=== PATIENT | female | born 1960 | race Caucasian/White ===

== ENCOUNTER 2017-05-11 01:30 | Observation (INO) ==
[2017-05-11 02:29] LABS: Basophils # 0.1 K/mcL (0.0-0.2); Basophils % 0.7 %; Eosinophils # 0.5 K/mcL (0.0-0.6); Eosinophils % 4.1 %; Hematocrit 43.4 % (35.3-44.9); Hemoglobin 14.3 g/dL (11.5-15.4); Immature Granulocytes % 0.3 % (0-4); Immature Platelets 6.6 % (1.1-6.1); Lymphocytes # 1.6 K/mcL (0.6-4.6); Lymphocytes % 13.1 %; Mean Corpuscular HGB Conc 32.9 g/dL (31.6-35.5); Mean Corpuscular Hemoglobin 29.4 pg (28.0-33.3); Mean Corpuscular Volume 89.1 fL (83.0-100.0); Mean Platelet Volume 10.8 fL (9.4-12.4); Monocytes # 0.7 K/mcL (0.0-1.3); Monocytes % 5.8 %; Neutrophils # 9.2 K/mcL (1.6-8.9); Platelet Count 308 K/mcL (140-400); Red Blood Count 4.87 M/mcL (3.82-4.97); Red Cell Distribution Width 13.8 % (11.5-14.5)
[2017-05-11 02:36] LABS: Activated Partial Thrombo Time 31.3 Seconds (26.0-36.0)
[2017-05-11 02:43] LABS: Calcium 9.6 mg/dL (8.6-10.8); Potassium 3.6 mEq/L (3.5-4.5)
[2017-05-11] MEDS ORDERED: Ondansetron 4 MG/2 ML VIAL IVP ONE (04:58)
[2017-05-11] MEDS ORDERED: 0.9 % Sodium Chloride 1,000 ML IVC ONE (04:58)
[2017-05-11] MEDS ORDERED: *HR* Morphine 2 MG/ML SYRINGE IVP ONE (04:58)
[2017-05-11 05:08] LABS: Bilirubin,Urine Small (Negative); Blood,Urine Negative (Negative); Clarity,Urine Cloudy (Clear); Color,Urine Yellow (Yellow); Glucose,Urine (UA) Normal (Normal); Ketones,Urine Trace mg/dL (Negative); Leukocyte Esterase,Urine Moderate (Negative); Nitrite,Urine Positive (Negative); PH,Urine 5.5 pH Units (5.0-8.0); Protein,Urine 30 mg/dL (Neg-Trace); Specific Gravity,Urine 1.022 (1.010-1.025); Urobilinogen,Urine Normal (Normal)
--- NOTE | 2017-05-11 05:08 | Emergency Department Note ---
Disposition Clinical Impression: Weakness Abdominal pain Qualifiers: Abdominal location: periumbilical Qualified Code(s): R10.33 - Periumbilical pain GI bleed Qualifiers: GI bleed type/associated pathology: unspecified gastrointestinal hemorrhage type Qualified Code(s): K92.2 - Gastrointestinal hemorrhage, unspecified Disposition: Still a Patient Condition: Fair Referrals: Paolo Ortiz MD [Primary Care Provider] - Forms: Work/School Release, ED Satisfaction Letter Time of Disposition: 06:19 Abdominal Pain HPI - General Chief Complaint: ED Abdominal Pain Stated Complaint: black diarrhea, weakness Time Seen by Provider: 05/11/17 04:42 Source: patient Mode of arrival: ambulatory Limitations: no limitations Nursing Notes Reviewed: Yes Vital Signs Reviewed: Yes - History of Present Illness HPI Narrative: Alert and oriented nontoxic-appearing 56-year-old female presents for multiple complaints. The patient complains of diarrhea that started on April 29 and has been constant. She states that earlier yesterday evening, she had an episode of dark tarry stools which has persisted since. She complains of periumbilical abdominal pain with nausea however denies any vomiting. She denies any fevers or chills. She does complain of a cough that is nonproductive. She also complains of substernal chest pain that she states "feels like anxiety". She states that this is more of a "pressure than a pain". She denies any urinary symptoms. She denies any shortness of breath or pain with inspiration. She does complain of generalized weakness and "muscle cramps all over". She denies any known sick contacts or recent foreign travel. She denies any recent antibiotic use. She states that she has a history of decreased kidney function , for which she is followed by Dr. Nguyen. Pt Subjective Complaint: abdominal pain Onset (ago): week(s) Consistency: intermittent Location: periumbilical Pain Severity: moderate Pain Scale: 7 Quality: cramping Radiation: none Migration to: no migration Improves with: nothing Worsens with: nothing Associated symptoms: Reports: nausea, diarrhea, melena, other (Cough, chest pain ). Denies: vomiting, fever, chills, dysuria, hematemesis, hematochezia, hematuria Treatments prior to arrival: none - Related Data Home Medications Medication Instructions Recorded Confirmed Alprazolam [Xanax] 0.5 mg PO TID PRN 05/31/15 11/04/15 Cholecalciferol (Vitamin D3) 50,000 unit PO QWEEK 05/31/15 11/04/15 [Vitamin D3] Gabapentin [Neurontin] 300 mg PO TID 05/31/15 11/04/15 Omeprazole [PriLOSEC] 40 mg PO BID 05/31/15 11/04/15 Quetiapine Fumarate [Seroquel] 25 - 50 mg PO HS PRN 05/31/15 11/04/15 Rosuvastatin Calcium [Crestor] 10 mg PO DAILY 05/31/15 11/04/15 Aspirin Enteric Coated [Aspirin EC] 325 mg PO HS 10/24/15 11/04/15 Ergocalciferol (VITAMIN D2) 50,000 unit PO [facility] 10/24/15 11/04/15 [Vitamin D2 (50,000 UNIT)] Previous Rx's Medication Instructions Recorded Amlodipine [Norvasc] 5 mg PO DAILY #30 tablet 07/24/15 Allergies Allergy/AdvReac Type Severity Reaction Status Date / Time Sulfa (Sulfonamide Allergy Hives Verified 05/11/17 01:32 Antibiotics) All systems ED: reviewed and negative except as stated. Constitutional: Denies: fever, chills, weakness, weight change Eyes: Denies: eye pain, eye discharge, vision change ENT ED: Denies: ear pain, throat pain, dental pain, hearing loss, epistaxis, congestion, dysphagia Cardiovascular: Reports: as per HPI, chest pain. Denies: palpitations, dyspnea on exertion, edema, syncope Respiratory: Reports: as per HPI, cough. Denies: dyspnea, wheezes, hemoptysis, stridor Gastrointestinal: Reports: as per HPI, abdominal pain, nausea, diarrhea, melena. Denies: vomiting, constipation, hematemesis, hematochezia Genitourinary: Denies: dysuria, frequency, hematuria, discharge Musculoskeletal: Denies: back pain, neck pain, arthralgia, myalgia Integumentary: Denies: rash, abrasion, lesions Neurological: Denies: headache, weakness, numbness, paresthesias, confusion, abnormal gait, vertigo Psychiatric: Denies: anxiety, depression, suicidal thoughts, homicidal thoughts , auditory hallucinations, visual hallucinations Endocrine: Denies: fatigue Hematological/Lymphatic: Denies: easy bleeding, easy bruising Allergic/Immunologic: Denies: facial swelling, urticaria Abdominal Pain PMH - Past Medical History Medical history: Reports: CHF, DVT, diabetes, GERD, hyperlipidemia, hypertension , other Female Surgical History: Reports: appendectomy, cholecystectomy [employer] history: Reports: no [employer] history Psychiatric history: Reports: anxiety, depression - Social History Smoking status: Current every day smoker Alcohol use: Reports: rarely Drug use: Reports: marijuana Physical Exam - General Limitations: no limitations General appearance: alert, in no apparent distress - Head Head exam: atraumatic, normocephalic, normal inspection - Eye Eye exam: Present: normal appearance, PERRL, EOMI. Absent: nystagmus - ENT ENT exam: mucous membranes moist - Neck Neck exam: Present: normal inspection, full ROM, trachea midline - Chest Chest inspection: Present: normal inspection, symmetric chest wall rise - Respiratory Respiratory exam: Present: normal lung sounds bilaterally. Absent: respiratory distress, wheezes, stridor, accessory muscle use, prolonged expiratory phase - Cardiovascular Cardiovascular exam: Present: regular rate, normal rhythm, normal heart sounds - Abdominal Exam Abdominal exam: Present: soft, tenderness, normal bowel sounds. Absent: distention, guarding, rebound, rigidity, organomegaly, tenderness at McBurney's Point, mass Abdominal tenderness: Present: epigastrium, moderate - Extremities Exam Extremities exam: Present: normal inspection, full ROM. Absent: tenderness, pedal edema - Neurological Exam Neurological exam: Present: alert, oriented X3 - Psychiatric Psychiatric exam: Present: normal affect, normal mood - Skin Skin exam: Present: warm, dry, intact, normal color Course Course Narrative: I have discussed this patient's case with Dr. Kirkpatrick. Dr. Kirkpatrick has had a [id number] evaluation with the patient and agrees with the plan. Vital Signs Temperature 98.0 F 05/11/17 01:33 Pulse Rate 81 05/11/17 01:33 Respiratory Rate 16 05/11/17 01:33 Blood Pressure 128/83 05/11/17 01:33 O2 Sat by Pulse Oximetry 97 05/11/17 01:33 Temperature 98.0 F 05/11/17 01:33 Pulse Rate 67 05/11/17 07:31 Respiratory Rate 20 07/15/17 07:31 Blood Pressure 127/71 05/11/17 07:31 O2 Sat by Pulse Oximetry 94 05/11/17 07:32 Oxygen Delivery Oxygen Delivery Room Air Abdominal Pain - Medical Records Medical records reviewed: Yes I reviewed the patient's medical records. - Lab Data Result diagrams: 05/11/17 02:19 05/11/17 02:19 Lab Results 05/11/17 05/11/17 05/11/17 Range/Units 02:19 02:19 02:19 WBC 12.0 H (4.3-11.1) K/mcL RBC 4.87 (3.82-4.97) M/mcL Hgb 14.3 (11.5-15.4) g/dL Hct 43.4 (35.3-44.9) % MCV 89.1 (83.0-100.0) fL MCH 29.4 (28.0-33.3) pg MCHC 32.9 (31.6-35.5) g/dL RDW 13.8 (11.5-14.5) % Plt Count 308 (140-400) K/mcL MPV 10.8 (9.4-12.4) fL Immature Gran % 0.3 (0-4) % Seg Neutrophils % 76.0 % Lymphocytes % 13.1 % Monocytes % 5.8 % Eosinophils % 4.1 % Basophils % 0.7 % Neutrophils # 9.2 H (1.6-8.9) K/mcL Lymphocytes # 1.6 (0.6-4.6) K/mcL Monocytes # 0.7 (0.0-1.3) K/mcL Eosinophils # 0.5 (0.0-0.6) K/mcL Basophils # 0.1 (0.0-0.2) K/mcL Immature Plt Fraction 6.6 H (1.1-6.1) % PT 11.0 (9.4-12.1) Seconds INR 1.0 APTT 31.3 (26.0-36.0) Seconds Sodium 140 (136-145) mEq/L Potassium 3.6 (3.5-4.5) mEq/L Chloride 111 H (98-109) mEq/L Carbon Dioxide 20 (19-29) mEq/L BUN 22 H (7-20) mg/dL Creatinine 1.82 H (0.57-1.11) mg/dL Est GFR ( Amer) 35 L (> 60) Est GFR (Non-Af Amer) 29 L (> 60) BUN/Creatinine Ratio 12 (6-26) Glucose 81 (70-99) mg/dL Calculated Osmolality 292 (280-300) Calcium 9.6 (8.6-10.8) mg/dL Phosphorus (2.3-4.7) mg/dL Magnesium (1.6-2.6) mg/dL Total Bilirubin (0.2-1.2) mg/dL Direct Bilirubin (0.0-0.5) mg/dL Indirect Bilirubin (0.0-1.2) mg/dL AST (5-34) Units/L ALT (0-55) Units/L Alkaline Phosphatase (38-126) Units/L Troponin I (0-0.03) ng/mL Serum Total Protein (6.0-8.3) g/dL Albumin (3.5-5.0) g/dL Globulin (2.4-3.5) g/dL Albumin/Globulin Ratio (1.1-2.2) Lipase (8-78) Units/L Urine Color (Yellow) Urine Clarity (Clear) Urine pH (5.0-8.0) pH Units Ur Specific [place] (1.010-1.025) Urine Protein (Neg-Trace) mg/dL Urine Glucose (UA) (Normal) mg/dL Urine Ketones (Negative) mg/dL Urine Blood (Negative) Urine Nitrite (Negative) Urine Bilirubin (Negative) Urine Urobilinogen (Normal) mg/dL Ur Leukocyte Esterase (Negative) Urine Microscopic RBC (0-3) per hpf Urine Microscopic WBC (0-3) per hpf Ur Squamous Epith Cells (None-Few) per lpf Urine Bacteria (None-Few) per hpf Ur Culture Indicated? (NO) Blood Type Antibody Screen 05/11/17 05/11/17 05/11/17 Range/Units 02:19 04:47 05:18 WBC (4.3-11.1) K/mcL RBC (3.82-4.97) M/mcL Hgb (11.5-15.4) g/dL Hct (35.3-44.9) % MCV (83.0-100.0) fL MCH (28.0-33.3) pg MCHC (31.6-35.5) g/dL RDW (11.5-14.5) % Plt Count (140-400) K/mcL MPV (9.4-12.4) fL Immature Gran % (0-4) % Seg Neutrophils % % Lymphocytes % % Monocytes % % Eosinophils % % Basophils % % Neutrophils # (1.6-8.9) K/mcL Lymphocytes # (0.6-4.6) K/mcL Monocytes # (0.0-1.3) K/mcL Eosinophils # (0.0-0.6) K/mcL Basophils # (0.0-0.2) K/mcL Immature Plt Fraction (1.1-6.1) % PT (9.4-12.1) Seconds INR APTT (26.0-36.0) Seconds Sodium (136-145) mEq/L Potassium (3.5-4.5) mEq/L Chloride (98-109) mEq/L Carbon Dioxide (19-29) mEq/L BUN (7-20) mg/dL Creatinine (0.57-1.11) mg/dL Est GFR ( Amer) (> 60) Est GFR (Non-Af Amer) (> 60) BUN/Creatinine Ratio (6-26) Glucose (70-99) mg/dL Calculated Osmolality (280-300) Calcium (8.6-10.8) mg/dL Phosphorus 3.4 (2.3-4.7) mg/dL Magnesium 1.7 (1.6-2.6) mg/dL Total Bilirubin 0.3 (0.2-1.2) mg/dL Direct Bilirubin 0.2 (0.0-0.5) mg/dL Indirect Bilirubin 0.1 (0.0-1.2) mg/dL AST 14 (5-34) Units/L ALT 12 (0-55) Units/L Alkaline Phosphatase 108 (38-126) Units/L Troponin I (0-0.03) ng/mL Serum Total Protein 7.1 (6.0-8.3) g/dL Albumin 3.5 (3.5-5.0) g/dL Globulin 3.6 H (2.4-3.5) g/dL Albumin/Globulin Ratio 1.0 L (1.1-2.2) Lipase 56 (8-78) Units/L Urine Color Yellow (Yellow) Urine Clarity Cloudy A (Clear) Urine pH 5.5 (5.0-8.0) pH Units Ur Specific [place] 1.022 (1.010-1.025) Urine Protein 30 H (Neg-Trace) mg/dL Urine Glucose (UA) Normal (Normal) mg/dL Urine Ketones Trace H (Negative) mg/dL Urine Blood Negative (Negative) Urine Nitrite Positive A (Negative) Urine Bilirubin Small H (Negative) Urine Urobilinogen Normal (Normal) mg/dL Ur Leukocyte Esterase Moderate H (Negative) Urine Microscopic RBC 3-5 H (0-3) per hpf Urine Microscopic WBC 5-15 H (0-3) per hpf Ur Squamous Epith Cells Many H (None-Few) per lpf Urine Bacteria Many H (None-Few) per hpf Ur Culture Indicated? YES A (NO) Blood Type O POSITIVE Antibody Screen NEGATIVE 05/11/17 Range/Units 05:18 WBC (4.3-11.1) K/mcL RBC (3.82-4.97) M/mcL Hgb (11.5-15.4) g/dL Hct (35.3-44.9) % MCV (83.0-100.0) fL MCH (28.0-33.3) pg MCHC (31.6-35.5) g/dL RDW (11.5-14.5) % Plt Count (140-400) K/mcL MPV (9.4-12.4) fL Immature Gran % (0-4) % Seg Neutrophils % % Lymphocytes % % Monocytes % % Eosinophils % % Basophils % % Neutrophils # (1.6-8.9) K/mcL Lymphocytes # (0.6-4.6) K/mcL Monocytes # (0.0-1.3) K/mcL Eosinophils # (0.0-0.6) K/mcL Basophils # (0.0-0.2) K/mcL Immature Plt Fraction (1.1-6.1) % PT (9.4-12.1) Seconds INR APTT (26.0-36.0) Seconds Sodium (136-145) mEq/L Potassium (3.5-4.5) mEq/L Chloride (98-109) mEq/L Carbon Dioxide (19-29) mEq/L BUN (7-20) mg/dL Creatinine (0.57-1.11) mg/dL Est GFR ( Amer) (> 60) Est GFR (Non-Af Amer) (> 60) BUN/Creatinine Ratio (6-26) Glucose (70-99) mg/dL Calculated Osmolality (280-300) Calcium (8.6-10.8) mg/dL Phosphorus (2.3-4.7) mg/dL Magnesium (1.6-2.6) mg/dL Total Bilirubin (0.2-1.2) mg/dL Direct Bilirubin (0.0-0.5) mg/dL Indirect Bilirubin (0.0-1.2) mg/dL AST (5-34) Units/L ALT (0-55) Units/L Alkaline Phosphatase (38-126) Units/L Troponin I 0.02 (0-0.03) ng/mL Serum Total Protein (6.0-8.3) g/dL Albumin (3.5-5.0) g/dL Globulin (2.4-3.5) g/dL Albumin/Globulin Ratio (1.1-2.2) Lipase (8-78) Units/L Urine Color (Yellow) Urine Clarity (Clear) Urine pH (5.0-8.0) pH Units Ur Specific [place] (1.010-1.025) Urine Protein (Neg-Trace) mg/dL Urine Glucose (UA) (Normal) mg/dL Urine Ketones (Negative) mg/dL Urine Blood (Negative) Urine Nitrite (Negative) Urine Bilirubin (Negative) Urine Urobilinogen (Normal) mg/dL Ur Leukocyte Esterase (Negative) Urine Microscopic RBC (0-3) per hpf Urine Microscopic WBC (0-3) per hpf Ur Squamous Epith Cells (None-Few) per lpf Urine Bacteria (None-Few) per hpf Ur Culture Indicated? (NO) Blood Type Antibody Screen - EKG Data EKG attestation: Yes I reviewed and interpreted this EKG. EKG shows normal: sinus rhythm, axis, intervals, QRS complexes, ST-T waves Rate: normal Rhythm: NSR [place]/QRS: normal When compared to previous EKG there are: no significant changes Interpretation: no acute changes, unchanged when compared to prior tracing (date ) (10/20/15) Critical Care Time Critical Care Time: Yes Total Critical Care Time: 45 Attestation: Critical care performed: Time is exclusive of separately billable procedures. Time includes: direct patient care, patient reassessment, coordination of patient care, interpretation of data (laboratory data, radiology data, and respiratory data), review of patient's medical records, medical consultation and documentation of patient care. Procedures included in critical care time: Procedures excluded from critical care time: S.B.A.R. - S.B.A.R. Transition of Care: Care of this patient has been transferred to Philly Berry PA-C due to mid- level shift change. Situation: Demographics, MOA Background: Presenting Complaint, Relevant PMH, Meds, & Allergies Assessment: Vital Signs, Course and respsone to treatment, Exam Concerns, Patient/Family Expectation, Pertinant Lab Results, Outstanding Labs Recommendation: Barrier(s) to disposition, Recommendation based on pending studies, treatments, or consults S.B.A.R. Report Given to: Philly Berry PA-C SFloydBFloydALorna Repor Time: 06:18 Attestation Statement - Attestation Attestation: Adithya, Ivan Kirkpatrick DO have provided [id number] time during the care of this patient. Detailed review the presentation, symptoms, medical history were discussed and reviewed with the mid-level provider Mikey Farris PA-C/COMMUNICATIONS DIRECTOR. Medical intervention labs and imaging studies were reviewed in detail. See full documentation of physical exam and course of care in the mid-level provider's note. I agree with the determined course of care, medical interventio,n and disposition put forth by the mid-level provider. See below documentation for changes or alterations in documentation. 56-year-old female presents emergency room with multiple complaints on presentation. Symptoms mainly on arrival here today's abdominal discomfort and pain. She also describes watery stool with dark color. Patient has a history of peptic ulcer disease with bleed in the past. Patient had evaluation by the nurse practitioner Mikey Farris. Patient had a Hemoccult-positive stool this time the diarrhea. CT of the abdomen shows ventral wall hernia with no other complication. Labs reviewed and otherwise stable except for increase in her kidney function as well as urinary tract infection. Because of the multiple presenting issues as well as lab abnormalities patient will be admitted for IV antibiotics and hydration and pain control. Otherwise patient is negative for any other concerning issues at this time. Disposition pending the admission process being completely by the daytime physician's judicial assistant Philly Berry. Detailed course of care and medical intervention evaluation were completed and documented prior. Critical care time provided to the patient secondary to GI bleed, diarrhea, abdominal pain, urinary tract infection with acute kidney injury
[2017-05-11 05:14] LABS: Squamous Epithelial Cell,Urine Many per lpf (None-Few)
[2017-05-11 05:15] LABS: Bacteria,Urine Many per hpf (None-Few)
[2017-05-11 06:13] LABS: Albumin 3.5 g/dL (3.5-5.0); Bilirubin,Direct 0.2 mg/dL (0.0-0.5); Bilirubin,Indirect 0.1 mg/dL (0.0-1.2); Bilirubin,Total 0.3 mg/dL (0.2-1.2); Globulin 3.6 g/dL (2.4-3.5); Magnesium 1.7 mg/dL (1.6-2.6); Phosphorous 3.4 mg/dL (2.3-4.7); Total Protein 7.1 g/dL (6.0-8.3)
--- NOTE | 2017-05-11 07:55 | Emergency Department Note ---
Disposition Clinical Impression: Weakness, Acute on chronic renal insufficiency Abdominal pain Qualifiers: Abdominal location: periumbilical Qualified Code(s): R10.33 - Periumbilical pain GI bleed Qualifiers: GI bleed type/associated pathology: unspecified gastrointestinal hemorrhage type Qualified Code(s): K92.2 - Gastrointestinal hemorrhage, unspecified UTI (urinary tract infection) Qualifiers: Urinary tract infection type: site unspecified Hematuria presence: without hematuria Qualified Code(s): N39.0 - Urinary tract infection, site not specified Disposition: Admitted As Inpatient Condition: Fair Referrals: Paolo Ortiz MD [Primary Care Provider] - Forms: ED Satisfaction Letter, Work/School Release Abdominal Pain HPI - General Chief Complaint: ED Abdominal Pain Stated Complaint: black diarrhea, weakness Time Seen by Provider: 05/11/17 04:42 Source: patient Mode of arrival: ambulatory Nursing Notes Reviewed: Yes Vital Signs Reviewed: Yes - History of Present Illness Pt Subjective Complaint: abdominal pain Location: periumbilical Pain Severity: moderate Pain Scale: 7 Quality: cramping Migration to: no migration Improves with: nothing Worsens with: nothing Associated symptoms: Reports: nausea, diarrhea, melena, other (Cough, chest pain ). Denies: vomiting, fever, chills, dysuria, hematemesis, hematochezia, hematuria - Related Data Home Medications Medication Instructions Recorded Confirmed Alprazolam [Xanax] 0.5 mg PO TID PRN 05/31/15 11/04/15 Cholecalciferol (Vitamin D3) 50,000 unit PO QWEEK 05/31/15 11/04/15 [Vitamin D3] Gabapentin [Neurontin] 300 mg PO TID 05/31/15 11/04/15 Omeprazole [PriLOSEC] 40 mg PO BID 05/31/15 11/04/15 Quetiapine Fumarate [Seroquel] 25 - 50 mg PO HS PRN 05/31/15 11/04/15 Rosuvastatin Calcium [Crestor] 10 mg PO DAILY 05/31/15 11/04/15 Aspirin Enteric Coated [Aspirin EC] 325 mg PO HS 10/24/15 11/04/15 Ergocalciferol (VITAMIN D2) 50,000 unit PO [facility] 10/24/15 11/04/15 [Vitamin D2 (50,000 UNIT)] Previous Rx's Medication Instructions Recorded Amlodipine [Norvasc] 5 mg PO DAILY #30 tablet 07/24/15 Allergies Allergy/AdvReac Type Severity Reaction Status Date / Time Sulfa (Sulfonamide Allergy Hives Verified 05/11/17 01:32 Antibiotics) Constitutional: Denies: fever, chills, weakness, weight change Eyes: Denies: eye pain, eye discharge, vision change ENT ED: Denies: ear pain, throat pain, dental pain, hearing loss, epistaxis, congestion, dysphagia Cardiovascular: Reports: as per HPI, chest pain. Denies: palpitations, dyspnea on exertion, edema, syncope Respiratory: Reports: as per HPI, cough. Denies: dyspnea, wheezes, hemoptysis, stridor Gastrointestinal: Reports: as per HPI, abdominal pain, nausea, diarrhea, melena. Denies: vomiting, constipation, hematemesis, hematochezia Genitourinary: Denies: dysuria, frequency, hematuria, discharge Musculoskeletal: Denies: back pain, neck pain, arthralgia, myalgia Integumentary: Denies: rash, abrasion, lesions Neurological: Denies: headache, weakness, numbness, paresthesias, confusion, abnormal gait, vertigo Psychiatric: Denies: anxiety, depression, suicidal thoughts, homicidal thoughts , auditory hallucinations, visual hallucinations Endocrine: Denies: fatigue Hematological/Lymphatic: Denies: easy bleeding, easy bruising Allergic/Immunologic: Denies: facial swelling, urticaria Abdominal Pain PMH - Past Medical History Medical history: Reports: CHF, DVT, diabetes, GERD, hyperlipidemia, hypertension , other Female Surgical History: Reports: appendectomy, cholecystectomy NEUROLOGY TECHNICIAN history: Reports: no NEUROLOGY TECHNICIAN history Psychiatric history: Reports: anxiety, depression - Social History Smoking status: Current every day smoker Alcohol use: Reports: rarely Drug use: Reports: marijuana Physical Exam - General Limitations: no limitations General appearance: alert, in no apparent distress Course Course Narrative: Assumed care of this patient from [facility] at 6 AM. Patient was waiting the results of a CAT scan. The CT has been read as a small fat-containing umbilical hernia, otherwise normal. The patient has a UTI, has worsening renal function compared to previous. She has chronic kidney disease. She has a history of peptic ulcer disease and has had no GI bleed in the past. She has had diarrhea since about April 29, but did not start having melena until yesterday. Given her history and comorbidities, I feel that she will require admission for further evaluation and observation. This case has already been stopped with the attending physician, Dr. Kirkpatrick. We discussed the plan to admit. He is in agreement. He has already attested to this patient and this documentation can be found on the chart done by Mikey Farris CNP Vital Signs Temperature 98.0 F 05/11/17 01:33 Pulse Rate 81 05/11/17 01:33 Respiratory Rate 16 05/11/17 01:33 Blood Pressure 128/83 05/11/17 01:33 O2 Sat by Pulse Oximetry 97 05/11/17 01:33 Temperature 98.0 F 05/11/17 01:33 Pulse Rate 67 05/11/17 07:31 Respiratory Rate 20 05/11/17 07:31 Blood Pressure 127/71 05/11/17 07:31 O2 Sat by Pulse Oximetry 94 05/11/17 07:32 Oxygen Delivery Oxygen Delivery Room Air Abdominal Pain - Lab Data Result diagrams: 05/11/17 02:19 05/11/17 02:19 Lab Results 05/11/17 05/11/17 05/11/17 Range/Units 02:19 02:19 02:19 WBC 12.0 H (4.3-11.1) K/mcL RBC 4.87 (3.82-4.97) M/mcL Hgb 14.3 (11.5-15.4) g/dL Hct 43.4 (35.3-44.9) % MCV 89.1 (83.0-100.0) fL MCH 29.4 (28.0-33.3) pg MCHC 32.9 (31.6-35.5) g/dL RDW 13.8 (11.5-14.5) % Plt Count 308 (140-400) K/mcL MPV 10.8 (9.4-12.4) fL Immature Gran % 0.3 (0-4) % Seg Neutrophils % 76.0 % Lymphocytes % 13.1 % Monocytes % 5.8 % Eosinophils % 4.1 % Basophils % 0.7 % Neutrophils # 9.2 H (1.6-8.9) K/mcL Lymphocytes # 1.6 (0.6-4.6) K/mcL Monocytes # 0.7 (0.0-1.3) K/mcL Eosinophils # 0.5 (0.0-0.6) K/mcL Basophils # 0.1 (0.0-0.2) K/mcL Immature Plt Fraction 6.6 H (1.1-6.1) % PT 11.0 (9.4-12.1) Seconds INR 1.0 APTT 31.3 (26.0-36.0) Seconds Sodium 140 (136-145) mEq/L Potassium 3.6 (3.5-4.5) mEq/L Chloride 111 H (98-109) mEq/L Carbon Dioxide 20 (19-29) mEq/L BUN 22 H (7-20) mg/dL Creatinine 1.82 H (0.57-1.11) mg/dL Est GFR ( Amer) 35 L (> 60) Est GFR (Non-Af Amer) 29 L (> 60) BUN/Creatinine Ratio 12 (6-26) Glucose 81 (70-99) mg/dL Calculated Osmolality 292 (280-300) Calcium 9.6 (8.6-10.8) mg/dL Phosphorus (2.3-4.7) mg/dL Magnesium (1.6-2.6) mg/dL Total Bilirubin (0.2-1.2) mg/dL Direct Bilirubin (0.0-0.5) mg/dL Indirect Bilirubin (0.0-1.2) mg/dL AST (5-34) Units/L ALT (0-55) Units/L Alkaline Phosphatase (38-126) Units/L Troponin I (0-0.03) ng/mL Serum Total Protein (6.0-8.3) g/dL Albumin (3.5-5.0) g/dL Globulin (2.4-3.5) g/dL Albumin/Globulin Ratio (1.1-2.2) Lipase (8-78) Units/L Urine Color (Yellow) Urine Clarity (Clear) Urine pH (5.0-8.0) pH Units Ur Specific [place] (1.010-1.025) Urine Protein (Neg-Trace) mg/dL Urine Glucose (UA) (Normal) mg/dL Urine Ketones (Negative) mg/dL Urine Blood (Negative) Urine Nitrite (Negative) Urine Bilirubin (Negative) Urine Urobilinogen (Normal) mg/dL Ur Leukocyte Esterase (Negative) Urine Microscopic RBC (0-3) per hpf Urine Microscopic WBC (0-3) per hpf Ur Squamous Epith Cells (None-Few) per lpf Urine Bacteria (None-Few) per hpf Ur Culture Indicated? (NO) Blood Type Antibody Screen 05/11/17 05/11/17 05/11/17 Range/Units 02:19 04:47 05:18 WBC (4.3-11.1) K/mcL RBC (3.82-4.97) M/mcL Hgb (11.5-15.4) g/dL Hct (35.3-44.9) % MCV (83.0-100.0) fL MCH (28.0-33.3) pg MCHC (31.6-35.5) g/dL RDW (11.5-14.5) % Plt Count (140-400) K/mcL MPV (9.4-12.4) fL Immature Gran % (0-4) % Seg Neutrophils % % Lymphocytes % % Monocytes % % Eosinophils % % Basophils % % Neutrophils # (1.6-8.9) K/mcL Lymphocytes # (0.6-4.6) K/mcL Monocytes # (0.0-1.3) K/mcL Eosinophils # (0.0-0.6) K/mcL Basophils # (0.0-0.2) K/mcL Immature Plt Fraction (1.1-6.1) % PT (9.4-12.1) Seconds INR APTT (26.0-36.0) Seconds Sodium (136-145) mEq/L Potassium (3.5-4.5) mEq/L Chloride (98-109) mEq/L Carbon Dioxide (19-29) mEq/L BUN (7-20) mg/dL Creatinine (0.57-1.11) mg/dL Est GFR ( Amer) (> 60) Est GFR (Non-Af Amer) (> 60) BUN/Creatinine Ratio (6-26) Glucose (70-99) mg/dL Calculated Osmolality (280-300) Calcium (8.6-10.8) mg/dL Phosphorus 3.4 (2.3-4.7) mg/dL Magnesium 1.7 (1.6-2.6) mg/dL Total Bilirubin 0.3 (0.2-1.2) mg/dL Direct Bilirubin 0.2 (0.0-0.5) mg/dL Indirect Bilirubin 0.1 (0.0-1.2) mg/dL AST 14 (5-34) Units/L ALT 12 (0-55) Units/L Alkaline Phosphatase 108 (38-126) Units/L Troponin I (0-0.03) ng/mL Serum Total Protein 7.1 (6.0-8.3) g/dL Albumin 3.5 (3.5-5.0) g/dL Globulin 3.6 H (2.4-3.5) g/dL Albumin/Globulin Ratio 1.0 L (1.1-2.2) Lipase 56 (8-78) Units/L Urine Color Yellow (Yellow) Urine Clarity Cloudy A (Clear) Urine pH 5.5 (5.0-8.0) pH Units Ur Specific [place] 1.022 (1.010-1.025) Urine Protein 30 H (Neg-Trace) mg/dL Urine Glucose (UA) Normal (Normal) mg/dL Urine Ketones Trace H (Negative) mg/dL Urine Blood Negative (Negative) Urine Nitrite Positive A (Negative) Urine Bilirubin Small H (Negative) Urine Urobilinogen Normal (Normal) mg/dL Ur Leukocyte Esterase Moderate H (Negative) Urine Microscopic RBC 3-5 H (0-3) per hpf Urine Microscopic WBC 5-15 H (0-3) per hpf Ur Squamous Epith Cells Many H (None-Few) per lpf Urine Bacteria Many H (None-Few) per hpf Ur Culture Indicated? YES A (NO) Blood Type O POSITIVE Antibody Screen NEGATIVE 05/11/17 Range/Units 05:18 WBC (4.3-11.1) K/mcL RBC (3.82-4.97) M/mcL Hgb (11.5-15.4) g/dL Hct (35.3-44.9) % MCV (83.0-100.0) fL MCH (28.0-33.3) pg MCHC (31.6-35.5) g/dL RDW (11.5-14.5) % Plt Count (140-400) K/mcL MPV (9.4-12.4) fL Immature Gran % (0-4) % Seg Neutrophils % % Lymphocytes % % Monocytes % % Eosinophils % % Basophils % % Neutrophils # (1.6-8.9) K/mcL Lymphocytes # (0.6-4.6) K/mcL Monocytes # (0.0-1.3) K/mcL Eosinophils # (0.0-0.6) K/mcL Basophils # (0.0-0.2) K/mcL Immature Plt Fraction (1.1-6.1) % PT (9.4-12.1) Seconds INR APTT (26.0-36.0) Seconds Sodium (136-145) mEq/L Potassium (3.5-4.5) mEq/L Chloride (98-109) mEq/L Carbon Dioxide (19-29) mEq/L BUN (7-20) mg/dL Creatinine (0.57-1.11) mg/dL Est GFR ( Amer) (> 60) Est GFR (Non-Af Amer) (> 60) BUN/Creatinine Ratio (6-26) Glucose (70-99) mg/dL Calculated Osmolality (280-300) Calcium (8.6-10.8) mg/dL Phosphorus (2.3-4.7) mg/dL Magnesium (1.6-2.6) mg/dL Total Bilirubin (0.2-1.2) mg/dL Direct Bilirubin (0.0-0.5) mg/dL Indirect Bilirubin (0.0-1.2) mg/dL AST (5-34) Units/L ALT (0-55) Units/L Alkaline Phosphatase (38-126) Units/L Troponin I 0.02 (0-0.03) ng/mL Serum Total Protein (6.0-8.3) g/dL Albumin (3.5-5.0) g/dL Globulin (2.4-3.5) g/dL Albumin/Globulin Ratio (1.1-2.2) Lipase (8-78) Units/L Urine Color (Yellow) Urine Clarity (Clear) Urine pH (5.0-8.0) pH Units Ur Specific [place] (1.010-1.025) Urine Protein (Neg-Trace) mg/dL Urine Glucose (UA) (Normal) mg/dL Urine Ketones (Negative) mg/dL Urine Blood (Negative) Urine Nitrite (Negative) Urine Bilirubin (Negative) Urine Urobilinogen (Normal) mg/dL Ur Leukocyte Esterase (Negative) Urine Microscopic RBC (0-3) per hpf Urine Microscopic WBC (0-3) per hpf Ur Squamous Epith Cells (None-Few) per lpf Urine Bacteria (None-Few) per hpf Ur Culture Indicated? (NO) Blood Type Antibody Screen
[2017-05-11] MEDS ORDERED: Acetaminophen 325 MG TABLET PO PRN (11:07)
[2017-05-11] MEDS ORDERED: Ondansetron 4 MG/2 ML VIAL IVP PRN (11:07)
[2017-05-11] MEDS ORDERED: Naloxone 0.4 MG/ML INJ IVP PRN (11:07)
[2017-05-11] MEDS ORDERED: 0.9 % Sodium Chloride 1,000 ML IVC SCH (11:15)
[2017-05-11] MEDS: ALPRAZolam 0.5 MG TABLET PO PRN ×2 (12:35→20:23)
--- NOTE | 2017-05-11 13:39 | Internal Med History&Physical ---
Date of Encounter: 05/11/17 Time of Encounter: 10:00 Assessment and Plan (1) Melena Current visit: Yes Status: Acute Reported melena at home. Check stool for occult blood. Hold aspirin for now. Continue IV hydration and monitor hemoglobin closely. IV Protonix. (2) Diarrhea Current visit: Yes Status: Acute Reports some improvement. Stool for C. difficile toxin noted to be negative. Check stool GI panel, stool WBC. Supportive care with when necessary loperamide and IV hydration. Full liquid diet and advance as tolerated. Qualifiers: Diarrhea type: unspecified type Qualified Code(s): R19.7 - Diarrhea, unspecified (3) LAURA (obstructive sleep apnea) Current visit: Yes Status: Chronic Patient is supposed to be on CPAP during sleep, she is noncompliant. (4) CKD (chronic kidney disease) Current visit: Yes Status: Chronic Baseline serum creatinine noted to be around 1.2, worse today at 1.8. Likely due to GI losses and dehydration. Continue IV hydration and monitor serum creatinine closely. Avoid nephrotoxic agents. Qualifiers: Chronic kidney disease stage: stage 3 (moderate) Qualified Code(s): N18.3 - Chronic kidney disease, stage 3 (moderate) (5) HTN (hypertension) Current visit: Yes Status: Chronic Blood pressure stable. Resume home medications as needed. Qualifiers: Hypertension type: essential hypertension Qualified Code(s): I10 - Essential (primary) hypertension (6) Type 2 diabetes mellitus Current visit: Yes Status: Chronic Patient reports she only has borderline diabetes, does not take medications at home. Accu-Chek blood glucose monitoring with sliding scale insulin as needed. Diabetic diet. 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 Continue IV Rocephin and follow up urine culture. Qualifiers: Urinary tract infection type: site unspecified Hematuria presence: without hematuria Qualified Code(s): N39.0 - Urinary tract infection, site not specified Internal Medicine - H&P: HPI Chief complaint: Melena Admitted From: Emergency Dept Plans for Post Hospital Care: Home History of present illness: Ms. Varghese is a 56 year old female with h/o- PUD, CKD, LAURA presents with c/o- diarrhea and melena. Patient reports that she started having loose watery bowel movements since April 29, non-bloody, at least 3-5 per day, associated with abdominal cramps and some nausea but no vomiting. Her diarrhea has been ongoing even during the sleep. No sick contacts, no outside food. She reports that her diarrhea is now improving but she started having dark tarry stools since last night. She had similar melena in the past when she had bleeding gastric ulcer, so she was concerned and presented for evaluation. No fever/chills. Past Med Surg Social Fam HX - Past Medical History Medical history: CHF, DVT, GERD, hyperlipidemia, hypertension, renal disease, other Psychiatric history: anxiety, depression - Past Surgical History Surgical History: carotid endarterectomy (left), herniorrhaphy (umbilical hernia repair), hip replacement (left), knee replacement (left), bariatric surgery (gastric bypass) - Social History Smoking Status: Current every day smoker Packs per day: 1/2 Smokeless Tobacco Status: No Alcohol use: none Drug use: marijuana Current living situation: Home, With Family Activity Level: Independent ambulation Recent Out of Country Travel Within the Last 8 Weeks: No - Family History Father Living Status: Age at : 74 Hx Family Respiratory Disorders: Yes (asbestos) Hx Family Cancer: Yes (Ovarian) Hx Family GI Disorders: No Hx Family Genitourinary Disorders: No Hx Family Endocrine Disorder: No Hx Family Musculoskeletal Disorders: No Hx Family Neuromuscular Disorders: No Hx Family Neurologic Disorders: No Hx Family HEENT Disorders: No Hx Family Autoimmune Disorders: No Hx Family Reproductive Disorders: No Hx Family Psychosocial Disorders: No Hx Family Medical Disorders: No Mother Adopted: No Family Member Ethnicity: Non- Living Status: Hx Family Cardiac Disorders: Yes Hx Family Cancer: Yes (ovarian) Hx Family Endocrine Disorder: Yes (thyroid) Internal Medicine - H&P: Meds Alprazolam [Xanax] 0.5 mg PO TID PRN 05/31/15 [History] Gabapentin [Neurontin] 300 mg PO TID 05/31/15 [History] Omeprazole [PriLOSEC] 40 mg PO BID 05/31/15 [History] Quetiapine Fumarate [Seroquel] 25 - 50 mg PO HS PRN 05/31/15 [History] Rosuvastatin Calcium [Crestor] 10 mg PO DAILY 05/31/15 [History] Amlodipine [Norvasc] 5 mg PO DAILY #30 tablet 07/24/15 [Rx] Aspirin Enteric Coated [Aspirin EC] 325 mg PO HS 10/24/15 [History] Ergocalciferol (VITAMIN D2) [Vitamin D2 (50,000 UNIT)] 50,000 unit PO MO [History] Cinnamon Bark [Cinnamon] 500 mg PO DAILY 05/11/17 [History] Cyanocobalamin (Vitamin B-12) [Vitamin B12] 1,000 mcg PO DAILY 05/11/17 [History ] DiphenhydraMINE [Benadryl] 25 mg PO BID 05/11/17 [History] Gluc/MSM/Coll2/Hyal/Antiarth#3 [Arthri-Flex Tablet] 1 tab PO DAILY 05/11/17 [ History] Lidocaine Patch [Lidoderm 5% patch] 1 patch TP DAILY 05/11/17 [History] Allergies Sulfa (Sulfonamide Antibiotics) Allergy (Verified 05/11/17 01:32) Hives All Systems PM: A 10-system review of systems was performed and is negative for pertinent findings except as documented above in the HPI. - Constitutional Constitutional: no chills, no fever(s), no night sweats - EENT Eyes: no change in vision, no discharge, no pain, no photophobia Ears: no ear discharge, no ear pain, no tinnitus Nose, mouth and throat: no dysphagia, no nasal discharge, no neck pain, no sore throat - Cardiovascular Cardiovascular ROS IM: no chest pain, no diaphoresis, no dyspnea, no lightheadedness, no palpitations, no syncope - Respiratory Respiratory: no cough, no dyspnea, no wheezing, no excessive phlegm production - Gastrointestinal Gastrointestinal: abdominal pain, loose stools, melena, nausea - Genitourinary Genitourinary: no change in urinary stream, no dysuria, no flank pain, no hematuria - Musculoskeletal Musculoskeletal ROS IM: no numbness, no tingling - Integumentary Integumentary IM: no rash, no unusual bruising - Neurological Neurological ROS: no confusion, no convulsions, no focal weakness, no numbness, no tingling, no tremor(s) - Hematologic/Lymphatic Hematologic/Lymphatic: no easy bruising - Constitutional Vitals: Temp Pulse Resp BP Pulse Ox 97.6 F 69 18 123/64 97 05/11/17 09:36 05/11/17 09:36 05/11/17 09:36 05/11/17 09:36 05/11/17 09:36 General appearance: Present: A&O X 3, answers questions appropriately - Respiratory Respiratory exam: Present: CTAB. Absent: accessory muscle use, rales, rhonchi, wheezes - Cardiovascular Cardiovascular exam: Present: RRR, +S1, +S2, systolic murmur. Absent: diastolic murmur, gallop, rubs - GI/Abdominal GI/Abdominal exam: Present: normal bowel sounds, soft, no peritoneal signs. Absent: distended, tenderness - Extremities Exam Extremities exam: Present: full ROM, warm, radial pulses palpable and symetrical. Absent: calf tenderness, cyanotic, pedal edema - Neurological Exam Neurological exam: Present: CN II-XII intact, oriented X3, no focal deficits. Absent: pronater drift, facial droop, speech deficit - Skin Skin exam: Present: dry, intact Internal Med - H&P Results - Labs CBC & Chem 7: 05/11/17 02:19 05/11/17 02:19
[2017-05-11] MEDS ORDERED: *HR* Dextrose 50 % in Water (Syg) 50 ML SYRINGE IVP PRN (13:50)
[2017-05-11] MEDS ORDERED: D5% in Water 1,000 ML IVC PRN (13:50)
[2017-05-11] MEDS ORDERED: Dextrose Gel 15 GM PO PRN ×2 (13:50)
[2017-05-11 14:28] LABS: Basophils % 0.5 %; Eosinophils # 0.4 K/mcL (0.0-0.6); Eosinophils % 5.6 %; Hematocrit 38.8 % (35.3-44.9); Hemoglobin 12.6 g/dL (11.5-15.4); Immature Granulocytes % 0.3 % (0-4); Immature Platelets 6.1 % (1.1-6.1); Lymphocytes # 1.3 K/mcL (0.6-4.6); Lymphocytes % 16.8 %; Mean Corpuscular HGB Conc 32.5 g/dL (31.6-35.5); Mean Corpuscular Hemoglobin 28.8 pg (28.0-33.3); Mean Corpuscular Volume 88.6 fL (83.0-100.0); Mean Platelet Volume 11.2 fL (9.4-12.4); Monocytes # 0.5 K/mcL (0.0-1.3); Monocytes % 6.7 %; Neutrophils # 5.5 K/mcL (1.6-8.9); Platelet Count 256 K/mcL (140-400); Red Blood Count 4.38 M/mcL (3.82-4.97); Red Cell Distribution Width 13.8 % (11.5-14.5); Segmented Neutrophils % 70.1 %
[2017-05-11 14:44] LABS: Hemoglobin A1C 5.1 %
[2017-05-11] MEDS: Gabapentin 300 MG CAPSULE PO SCH ×2 (15:16→20:24)
[2017-05-11 16:30] LABS: C.difficile Toxin A/B by PCR Not detected (Not detect); Campylobacter by PCR Not detected (Not detect); Enteroaggregative E.coli(EAEC) Not detected (Not detect); Enteropathogenic E.coli(EPEC) Not detected (Not detect); Enterotoxigenic E.coli (ETEC) Not detected (Not detect); Plesiomonas shigelloides PCR Not detected (Not detect); Salmonella PCR Not detected (Not detect); Shigalike tox-prod E coli STEC Not detected (Not detect); Vibrio PCR Not detected (Not detect); Vibrio cholerae PCR Not detected (Not detect); Yersinia enterocolitica PCR Not detected (Not detect)
[2017-05-11 16:31] LABS: Adenovirus F 40/41 PCR Not detected (Not detect); Astrovirus PCR Not detected (Not detect); Cryptosporidium by PCR Not detected (Not detect); Cyclospora cayetanensis PCR Not detected (Not detect); E. coli O157 by PCR Not detected (Not detect); Entamoeba histolytica PCR Not detected (Not detect); Giardia lamblia PCR Not detected (Not detect); Norovirus GI/GII PCR Not detected (Not detect); Rotavirus A PCR Not detected (Not detect); Sapovirus PCR Not detected (Not detect); Shig/EnteroinvasiveE coli EIEC Not detected (Not detect)
[2017-05-11] MEDS: Insulin LISPRO 300 UNITS/3 ML VIAL SQ SCH (18:49)
[2017-05-11] MEDS ORDERED: Insulin LISPRO 300 UNITS/3 ML VIAL SQ SCH (21:00)
[2017-05-12 05:28] LABS: Basophils # 0.1 K/mcL (0.0-0.2); Basophils % 0.8 %; Eosinophils # 0.6 K/mcL (0.0-0.6); Eosinophils % 8.3 %; Hematocrit 37.1 % (35.3-44.9); Hemoglobin 12.2 g/dL (11.5-15.4); Immature Granulocytes % 0.3 % (0-4); Lymphocytes # 1.7 K/mcL (0.6-4.6); Mean Corpuscular HGB Conc 32.9 g/dL (31.6-35.5); Mean Corpuscular Hemoglobin 29.3 pg (28.0-33.3); Mean Corpuscular Volume 89.2 fL (83.0-100.0); Mean Platelet Volume 11.4 fL (9.4-12.4); Monocytes # 0.6 K/mcL (0.0-1.3); Monocytes % 8.6 %; Neutrophils # 3.8 K/mcL (1.6-8.9); Platelet Count 207 K/mcL (140-400); Red Blood Count 4.16 M/mcL (3.82-4.97)
[2017-05-12 05:38] LABS: Calcium 8.4 mg/dL (8.6-10.8); Magnesium 1.6 mg/dL (1.6-2.6); Phosphorous 2.9 mg/dL (2.3-4.7); Potassium 3.9 mEq/L (3.5-4.5)
[2017-05-12 07:08] VITALS: BP 154/70
[2017-05-12] MEDS: Gabapentin 300 MG CAPSULE PO SCH (07:16)
[2017-05-12] MEDS: Insulin LISPRO 300 UNITS/3 ML VIAL SQ SCH (07:19)
--- NOTE | 2017-05-12 08:35 | Discharge Summary ---
Date of Encounter: 05/12/17 Time of Encounter: 08:31 - Discharge Diagnosis (1) UTI (urinary tract infection) Priority: Primary Status: Acute Comments: Growing G-ve rods Qualifiers: Urinary tract infection type: site unspecified Hematuria presence: without hematuria Qualified Code(s): N39.0 - Urinary tract infection, site not specified (2) Acute on chronic renal insufficiency Priority: Primary Status: Acute Comments: back to baseline Cr 1.2 -- CKD-2 (3) Melena Priority: Secondary Status: Resolved Comments: hemoccult stool - negative (4) History of gastric bypass Priority: Secondary Status: Chronic (5) Diarrhea Priority: Secondary Status: Chronic Qualifiers: Diarrhea type: unspecified type Qualified Code(s): R19.7 - Diarrhea, unspecified (6) HTN (hypertension) Priority: Secondary Status: Chronic Qualifiers: Hypertension type: essential hypertension Qualified Code(s): I10 - Essential (primary) hypertension - Discharge Medications Prescriptions: Ciprofloxacin [Cipro] 500 mg PO BID #10 tablet Saccharomyces Boulardii [Florastor] 250 mg PO BID #14 capsule Home Medications: Alprazolam [Xanax] 0.5 mg PO TID PRN 05/31/15 [History] Gabapentin [Neurontin] 300 mg PO TID 05/31/15 [History] Omeprazole [PriLOSEC] 40 mg PO BID 05/31/15 [History] Quetiapine Fumarate [Seroquel] 25 - 50 mg PO HS PRN 05/31/15 [History] Rosuvastatin Calcium [Crestor] 10 mg PO DAILY 05/31/15 [History] Amlodipine [Norvasc] 5 mg PO DAILY #30 tablet 07/24/15 [Rx] Ergocalciferol (VITAMIN D2) [Vitamin D2 (50,000 UNIT)] 50,000 unit PO MO [History] Cinnamon Bark [Cinnamon] 500 mg PO DAILY 05/11/17 [History] Cyanocobalamin (Vitamin B-12) [Vitamin B12] 1,000 mcg PO DAILY 05/11/17 [History ] DiphenhydraMINE [Benadryl] 25 mg PO BID 05/11/17 [History] Gluc/MSM/Coll2/Hyal/Antiarth#3 [Arthri-Flex Tablet] 1 tab PO DAILY 05/11/17 [ History] Lidocaine Patch [Lidoderm 5% patch] 1 patch TP DAILY 05/11/17 [History] Aspirin Enteric Coated [Aspirin EC] 81 mg PO HS #0 05/12/17 [Rx] Levofloxacin [Levaquin] 500 mg PO DAILY 5 Days 05/12/17 [Rx] Saccharomyces Boulardii [Florastor] 250 mg PO BID #14 capsule 05/12/17 [Rx] Allergies/Adverse Reactions: Allergies Sulfa (Sulfonamide Antibiotics) Allergy (Verified 05/11/17 01:32) Hives Date of admission: 05/11/17 08:05 Primary care physician: Paolo Ortiz MD - Patient Status Disposition: Home, Self-Care Condition: Fair - Discharge Instructions Follow Up With: Paolo Ortiz MD [Primary Care Provider] - Hospital course: Ms. Varghese is a 56 year old female with h/o- PUD, CKD, LAURA presents with c/o- diarrhea and melena. Patient reports that she started having loose watery bowel movements since April 29, non-bloody, at least 3-5 per day, associated with abdominal cramps and some nausea but no vomiting. Her diarrhea has been ongoing even during the sleep. No sick contacts, no outside food. She reports that her diarrhea is now improving but she started having dark tarry stools since the night prior to admission. Patient got admitted in the hospital and started her on symptomatic and supportive care with IV hydration. Patient had hemoccult of stool done, which came back is negative. Also ruled out C. difficile infection. Patient seems to be having abnormal uterine analysis with urine culture is growing gram negative rods. So I started her on empirical antibiotic with the rocephin. Patient remained afebrile, and tolerating PO intake will. Her kidney function also improved creatinine came back to baseline at 1.2. So I am discharging her home in a stable condition today. - Time Spent with Patient Total time spent providing and/or coordinating discharge services: Less than 30 minutes - Constitutional Vitals: Temp Pulse Resp BP Pulse Ox 97.7 F 63 18 154/70 95 05/12/17 07:00 05/12/17 07:00 05/12/17 07:00 05/12/17 07:00 05/12/17 07:00 General appearance: Present: A&O X 3, answers questions appropriately - Respiratory Respiratory exam: Present: CTAB. Absent: accessory muscle use, rales, rhonchi, wheezes - Cardiovascular Cardiovascular exam: Present: RRR, +S1, +S2. Absent: diastolic murmur, gallop, rubs, systolic murmur - GI/Abdominal GI/Abdominal exam: Present: normal bowel sounds, soft, no peritoneal signs. Absent: distended, tenderness - Extremities Exam Extremities exam: Absent: calf tenderness, pedal edema, tenderness
[2017-05-12] MEDS ORDERED: amLODIPine 5 MG TABLET PO SCH (09:00)
[2017-05-12] MEDS ORDERED: Pantoprazole 40 MG VIAL IVP SCH (09:00)
--- NOTE | 2017-05-13 10:10 | Electrocardiograph Report ---
[place] [id number] Test Date: 2017-05-11 Pat Name: Clara Varghese Department: 102 Room: 3A12 Gender: F Label Tacker: Elsie : 1960 Requested By: Ivan Kirkpatrick Order Number: [id number] Reading MD: Jack Gautam MD Measurements Intervals [place] Rate: 70 P: -5 SC: 177 QRS: -10 QRSD: 90 T: 65 QT: 420 QTc: 441 Interpretive Statements SINUS RHYTHM MODERATE VOLTAGE CRITERIA FOR LVH Electronically Signed On 05-13-2017 10:08:44 EDT by Jack Gautam MD
== END 2017-05-12 09:47 | disposition home or self-care (01) ==
LOC: EMEROO 01:30 → 3ANU 01:30
PROVIDERS: ADMIT Internal Medicine; ATTEND Family Medicine